=== PATIENT | female | born 1965 ===

== ENCOUNTER → 2017-11-01 | Day surgery (SDC) | payer OTHER ==
[~2017-11-01] VITALS: Ht 152.4 cm; Wt 78.5 kg
[2017-11-01 08:28] VITALS: BP 123/72
[2017-11-01 16:54] VITALS: BP 137/76
== END | disposition home or self-care (01) ==
LOC: OR 10-26 12:00 → DS 07:56 → NM 09:00 → OR 12:00
PROVIDERS: Surgery
PROC: 07B60ZZ Excision of Left Axillary Lymphatic, Open Approach (ICD-10-PCS; 2017-11-01)
PROC: 0HBU0ZZ Excision of Left Breast, Open Approach (ICD-10-PCS; principal; 2017-11-01 12:00)
DX: C50.412 Malignant neoplasm of upper-outer quadrant of left female breast (principal); C77.3 Secondary and unspecified malignant neoplasm of axilla and upper limb lymph nodes; K21.9 Gastro-esophageal reflux disease without esophagitis; N28.1 Cyst of kidney, acquired; K76.89 Other specified diseases of liver; Z17.0 Estrogen receptor positive status [ER+]
CPT/HCPCS: 88329; 88344; 88361; J0690; J1885; J2001; J2250; J2270; J2405; J2704; J3010; J3490; J7120; Q9968